=== PATIENT | male | born 1935 | race Hispanic/Latino ===

== ENCOUNTER 2018-01-08 07:50 | Emergency (ER) | payer MEDICARE ==
[2018-01-08] MEDS ORDERED: SODIUM CHLORIDE 0.9% 1000ML 1,000 ML IV ONE (08:23)
[2018-01-08] MEDS ORDERED: BENZONATATE 100 MG CAPSULE PO ONE (08:24)
[2018-01-08] MEDS ORDERED: ACETAMINOPHEN 325 MG TAB ONE (08:24)
[2018-01-08 08:30] LABS: BASOPHILS % (AUTO) 0.6 % (0.0-5.0); EOSINOPHILS % (AUTO) 0.4 % (0.0-8.0); HEMATOCRIT 47.4 % (42-54); LYMPHOCYTES % (AUTO) 19.7 % (21.0-51.0); MEAN CORPUSCULAR HEMOGLOBIN 30.9 pg (27.0-33.0); MEAN CORPUSCULAR HGB CONC 32.9 g/dL (32.0-36.0); MEAN CORPUSCULAR VOLUME 94.2 fL (79-99); MONOCYTES % (AUTO) 10.1 % (3.0-13.0); NEUTROPHILS % (AUTO) 69.2 % (40.0-77.0); NUCLEATED RED BLOOD CELLS 0.1 % (0.0-0.19); PLATELET COUNT (AUTO) 162 K/uL (130-400); RED BLOOD CELL COUNT(AUTO) 5.04 MIL/uL (4.50-6.20); RED CELL DISTRIBUTION WIDTH 13.5 % (11.0-15.5); WHITE BLOOD COUNT (AUTO) 7.5 K/uL (4.8-10.8)
[2018-01-08] MEDS ORDERED: IPRATROPIUM/ALBUTEROL SULFATE 3 ML SOLUTION IH ONE (08:30)
[2018-01-08] MEDS ORDERED: SODIUM CHLORIDE 0.9% 100 ML IV ONE (09:16)
[2018-01-08] MEDS ORDERED: CEFTRIAXONE SODIUM 1 GM ONE (09:16)
[2018-01-08 09:53] LABS: POTASSIUM 4.2 mmol/L (3.5-5.1)
[2018-01-08 09:59] LABS: ALBUMIN 3.4 g/dL (3.5-5.0); TOTAL PROTEIN, SERUM 7.8 g/dL (6.0-8.3)
[2018-01-08] MEDS ORDERED: AZITHROMYCIN 250 MG TABLET PO ONE (10:36)
== END 2018-01-08 12:55 | disposition home or self-care (01) ==
LOC: EDH 07:50
DX: J20.9 Acute bronchitis, unspecified (principal); F03.90 Unspecified dementia, unspecified severity, without behavioral disturbance, psychotic disturbance, mood disturbance, and anxiety; E11.9 Type 2 diabetes mellitus without complications; I10 Essential (primary) hypertension; Z79.899 Other long term (current) drug therapy
CPT/HCPCS: 36415; 71045; 80053; 82550; 83605 ×2; 84484; 85025; 87040 ×2; 87804 ×2; 93005; 94640; 96374; 99285; J0696; J7030; 96361